=== PATIENT | male | born 2000 | race Caucasian/White ===

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

== ENCOUNTER 2021-06-23 15:10 | Emergency (ER) | payer OTHER, SELFPAY ==
[2021-06-23 15:12] VITALS: BP 125/64; PULSE 73; RESP 16; TEMP 37.7; O2SAT 99
--- NOTE | 2021-06-23 15:30 | DI.CT_ITS ---
Exam(s) CT ABDOMEN PELVIS W EXAM: CT ABDOMEN PELVIS W CLINICAL HISTORY: ?left abdominal hematoma. TECHNIQUE: Imaging Protocol: Axial computed tomography images with coronal and sagittal reformatted images were created and reviewed CONTRAST MATERIAL: Intravenous: Omnipaque 100cc Oral: None COMPARISON: No exams were available for comparison FINDINGS: VISUALIZED LUNG BASES: No nodules nor pleural effusions evident. ABDOMEN: There is no ascites. LIVER: There are no focal hepatic lesions evident. No liver laceration evident. No Margy hepatic flu id. GALLBLADDER/BILIARY: No obvious gallbladder pathology. CBD is not dilated. PANCREAS: No evidence of pancreatic mass nor dilatation of the pancreatic duct. SPLEEN: Spleen size is normal. No splenic lacerations seen. No perisplenic fluid. Splenic and port al veins are patent. ADRENALS: There are no significant adrenal masses. KIDNEYS:No evidence of renal laceration nor subcapsular hematoma. No solid renal masses. No calculi nor hydronephrosis.. No kidney cysts evident. ABDOMINAL AORTA: Abdominal aorta is not enlarged. LYMPH NODES:There is no retroperitoneal nor paraaortic adenopathy. ABDOMINAL WALL: There is subcutaneous bruising over the left side of the abdomen. No obvious lacerat ion nor air in the subcutaneous tissues at this level. No drainable fluid collection. Some deep flu id is seen parallel to the external oblique muscles. GI: No evidence of bowel wall nor mesenteric hematoma. PELVIS: GI: No evidence of appendicitis.No evidence of sigmoid diverticulitis. LYMPH NODES: There is no intrapelvic nor inguinal adenopathy. REPRODUCTIVE: Prostate size normal. Seminal vesicles unremarkable. URINARY BLADDER: Unremarkable. Not distended. No extravasation OSSEOUS: No significant osseous lesions. No fractures evident. IMPRESSION: 1. There is superficial and deep subcutaneous bruising over the left abdominal wall, not associated w ith obvious laceration or radiopaque foreign body. 2. No splenic laceration, liver laceration, nor renal trauma and there is no evidence of mesenteric n or bowel wall hematoma. 3. No ascites. 4. No incidental abnormal findings in the abdomen and pelvis. RADIATION DOSE DELIVERED: 821.34mGy.cm Total DLP DATA REPOSITORY: All CT scans at this facility are submitted to the National Radiology Data Registry (NRDR) Dose Index Registry (DIR) with the [employer] (ACR). RADIATION OPTIMIZATION: All CT scans at this facility use at least one of these dose optimization te chniques: automated exposure control; mA and/or kV adjustment per patient size (includes targeted exa ms where dose is matched to clinical indication); or iterative reconstruction.
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
[2021-06-23 16:14] LABS: Abs Immature Grans 0.01 10^3/uL (0.0-0.06); Absolute Basophil Count 0.03 10^3/uL (0.0-0.2); Absolute Eosinophil Count 0.13 10^3/uL (0.0-0.7); Absolute Lymphocyte Count 2.02 10^3/uL (1.2-3.4); Absolute Monocyte Count 0.75 10^3/uL (0.1-0.8); Absolute Neutrophil Count 2.44 10^3/uL (1.2-6.7); Basophils % 0.6; Eosinophils % 2.4; HCT 45.1 % (40.0-50.0); Immature Grans % 0.2; Lymphocytes % 37.5; MCH 29.4 pg (27.0-33.0); MCHC 33.3 % (32.0-36.0); MCV 88.4 fL (80-95); MPV 9.8 fL (8.0-11.0); Monocytes % 13.9; Neutrophils % 45.4; Nucleated RBC 0 %; Platelet Count 281 10^3/uL (130-400); RDW 13.4 % (11.8-14.1); RDW-SD 44.1 fL; WBC 5.38 10^3/uL (4.4-10.8)
[2021-06-23] MEDS: Omnipaque 350 MG/ML 100 ML BTL IJ (16:40)
[2021-06-23] MEDS: Normal Saline Flush 10 ML SYR IVP (16:40)
[2021-06-23 16:48] LABS: ALT 58 U/L (16-63); AST 42 U/L (15-37); Albumin 3.9 g/dL (3.4-5.0); Alkaline Phosphatase 92 U/L (46-116); Anion Gap 6.3 mmol/L (3-11); BUN 12 mg/dL (7-18); Bilirubin, Total 0.7 mg/dL (0.2-1.0); CO2 29.7 mmol/L (21.0-32.0); CREATININE 0.9 mg/dL (0.70-1.30); Chloride 107 mmol/L (98-107); Glucose 106 mg/dL (74-106); Potassium 4.2 mmol/L (3.5-5.1); Sodium 143 mmol/L (136-145); Total Protein 7.5 g/dL (6.4-8.2)
== END 2021-06-23 17:06 | disposition home or self-care (01) ==
PROVIDERS: Emergency Provider Emergency Medicine; PCP Internal Medicine
DX: R10.32 Left lower quadrant pain (principal); W21.89XA Striking against or struck by other sports equipment, initial encounter
CPT/HCPCS: 36415; 80053; 99285; 74177; 85025; 99283; J3490

== ENCOUNTER 2025-01-19 15:53 | Emergency (ER) | payer OTHER, SELFPAY ==
[2025-01-19 16:04] VITALS: BP 136/78; PULSE 57; RESP 18; TEMP 36.9; O2SAT 98
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
--- NOTE | 2025-01-19 16:30 | DI.RAD_ITS ---
Exam(s) XR HIP RT COMPLETE AP PELVIS EXAM: XR HIP RT COMPLETE AP PELVIS CLINICAL HISTORY: fall and pain/swelling. TECHNIQUE: 2D digital imaging was performed. Three views COMPARISON: CR LEFT HIP COMPLETE from 04/07/2013 FINDINGS: BONES: No acute fracture is present. No bony destructive lesion is seen. JOINTS: No dislocation present. The SI joints and pubic symphysis are intact. Hip joint spaces are maintained. SOFT TISSUE: Normal. IMPRESSION: No acute abnormality. The preliminary [facility] report was reviewed. DATA REPOSITORY: RADIATION DOSE DELIVERED:
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
[2025-01-19] MEDS: Ketorolac 15 MG/ML VIAL IVP (18:10)
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
[2025-01-19 18:19] LABS: Abs Immature Grans 0.03 10^3/uL (0.0-0.06); HCT 44.8 % (40.0-50.0); HGB 15.2 g/dL (13.5-17.5); Immature Grans % 0.4 %; MCH 30.4 pg (27.0-33.0); MCHC 33.9 % (32.0-36.0); MCV 90 fL (80-95); MPV 9.8 fL (8.0-11.0); Platelet Count 298 10^3/uL (130-400); RBC 5.00 10^6/uL (4.36-5.78); RDW 12.6 % (11.8-14.1); RDW-SD 41.7 fL; WBC 8.35 10^3/uL (4.4-10.8)
[2025-01-19] MEDS: Normal Saline - Diluent 50 ML VIAL IJ (18:26)
[2025-01-19] MEDS: Omnipaque 350 MG/ML 100 ML BTL IJ (18:26)
[2025-01-19 18:35] LABS: ALT 33 U/L (16-63); AST 22 U/L (15-37); Albumin 4.3 g/dL (3.4-5.0); Alkaline Phosphatase 68 U/L (46-116); Anion Gap 7.8 mmol/L (3-11); BUN 12 mg/dL (7-18); Bilirubin, Total 0.3 mg/dL (0.2-1.0); CO2 29.2 mmol/L (21.0-32.0); Calcium 9.1 mg/dL (8.5-10.1); Chloride 103 mmol/L (98-107); Estimated GFR 107.78 (mL/min/1.73m2); Glucose 90 mg/dL (74-106); Potassium 3.9 mmol/L (3.5-5.1); Sodium 140 mmol/L (136-145); Total Protein 8.0 g/dL (6.4-8.2)
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
[2025-01-19 20:12] VITALS: BP 114/73; PULSE 59; RESP 16; TEMP 37.1; O2SAT 96
== END 2025-01-19 20:15 | disposition home or self-care (01) ==
PROVIDERS: Emergency Provider Emergency Medicine Emergency Medical Services; PCP Internal Medicine
DX: S70.11XA Contusion of right thigh, initial encounter (principal); V18.0XXA Pedal cycle driver injured in noncollision transport accident in nontraffic accident, initial encounter
CPT/HCPCS: 99285; 99284; 36415; 96374; 76882; 80053; 73502; 73701; 85025; J1885; J3490